=== PATIENT | female | born 1955 | race Caucasian/White ===

== ENCOUNTER 2022-03-11 06:53 | Day surgery (SDC) | payer MEDICARE, BC ==
[2022-03-04 10:30] LABS: CLARITY,URINE CLEAR (Clear); COLOR,URINE YELLOW (Yellow); GLUCOSE, URINE NEGATIVE (Neg); KETONES,URINE NEGATIVE (Neg); LEUKOCYTE ESTERASE ,URINE NEGATIVE (Neg); NITRITES, URINE NEGATIVE (Neg); OCCULT BLOOD,URINE NEGATIVE (Neg); PH,URINE 7.5 (4.8-8.0); PROTEIN,URINE NEGATIVE (Neg); UROBILINOGEN,URINE 0.2 E.U/dL (0.2-1.0)
[2022-03-04 10:32] LABS: BASOPHILS % (AUTO) 0.7 % (0-1); EOSINOPHILS # (AUTO) 0.1 X10'3 (0-0.9); EOSINOPHILS % (AUTO) 1.5 % (0-6); LYMPHOCYTES # (AUTO) 1.2 X10'3 (1.1-4.8); LYMPHOCYTES % (AUTO) 20.4 % (21-51); MEAN CORPUSCULAR HEMOGLOBIN 29.9 PG (27.0-31.0); MEAN CORPUSCULAR HGB CONC 32.2 g/dL (33.0-36.5); MEAN CORPUSCULAR VOLUME 92.9 FL (78-98); MEAN PLATELET VOLUME 8.8 FL (7.4-10.4); MONOCYTES # (AUTO) 0.7 X10'3 (0-0.9); MONOCYTES % (AUTO) 11.7 % (2-12); NEUTROPHILS % (AUTO) 65.7 % (42-75); PRE OP HEMATOCRIT 42.1 % (35.0-45.0); PRE OP HEMOGLOBIN 13.5 g/dL (12.0-16.0); PRE OP PLATELET COUNT 225 X10'3 (140-440); RED BLOOD COUNT 4.53 X10'6 (4.20-5.60); RED CELL DISTRIBUTION WIDTH 13.8 % (11.5-14.5)
[2022-03-04 10:37] LABS: UA COLLECTION TYPE CLN CATCH MIDSTREAM
[2022-03-04 10:42] LABS: ALBUMIN 3.8 G/DL (3.4-5.0); ALBUMIN/GLOBULIN RATIO 1.2 (1.1-1.5); ALKALINE PHOSPHATASE 47 IU/L (46-116); BLOOD UREA NITROGEN 11 MG/DL (7-18); BUN/CREATININE RATIO 15.3 (6.6-38.0); CALCIUM 9.1 MG/DL (8.5-10.1); CHLORIDE 102 MMOL/L (99-107); CREATININE 0.72 MG/DL (0.40-0.90); PRE OP ALT 23 U/L (30-65); PRE OP ANION GAP 6 (8-16); PRE OP AST 31 U/L (10-37); PRE OP BILIRUB, TOTAL 0.4 MG/DL (0.0-1.0); PRE OP GLUCOSE 106 MG/DL (70-104); PRE OP SODIUM 138 MMOL/L (135-145); TOTAL CARBON DIOXIDE 30.4 MMOL/L (24-32); eGFR 81 ML/MIN
[2022-03-11] VITALS (14 sets, daily range): BP systolic 121–165; BP diastolic 77–109
[~2022-03-11] VITALS: Ht 167.6 cm; Wt 52.8 kg
[~2022-03-11 06:53] MED LIST: CHOL100046 PO; ESTR1TAB28 PO; PROG200C11 PO; ceFAZolin inj. 2,000 MG in dextrose 5%-water 100 ML IV ONE; famotidine 20mg tablet PO ONE; ringers solution, lacted 1,000 ML IV SCH
[2022-03-11] MEDS ORDERED: BUPIVACAINE liposomal/PF 13.3 MG/ML vial IM ONE (08:03)
[2022-03-11] MEDS ORDERED: BUPIVAcaine 0.5% inj/PF 30 ML ONE (08:03)
[2022-03-11] MEDS ORDERED: midazolam 1 mg/ML 2ml injection ONE (08:38)
[2022-03-11] MEDS ORDERED: fentaNYL/PF 50MCG/1 ML 2ML syringe ONE ×2 (08:38→09:49)
[2022-03-11] MEDS ORDERED: ondansetron/PF 4mg/2ml inj IV PRN (08:55)
[2022-03-11] MEDS ORDERED: ringers solution, lacted 1,000 ML IV SCH (08:55)
[2022-03-11] MEDS ORDERED: meperidine/PF 25mg/ml syringe IV PRN ×2 (08:55)
[2022-03-11] MEDS ORDERED: proCHLORperazine 10 MG/2 ml inj IV PRN (08:55)
[2022-03-11] MEDS ORDERED: morphine 2 MG/ML inj. syringe IV PRN (08:55)
[2022-03-11] MEDS ORDERED: sevoflurane 250ml liquid IH ONE (09:00)
[2022-03-11] MEDS ORDERED: LIDOcaine 2% (20mg/ml) 5ml vial ONE (09:49)
[2022-03-11] MEDS ORDERED: ondansetron/PF 4mg/2ml inj ONE (09:49)
[2022-03-11] MEDS ORDERED: dexamethasone sod phosphate 4mg/ml inj. ONE (09:49)
[2022-03-11] MEDS ORDERED: rocuronium 10mg/ml inj IV ONE (09:49)
[2022-03-11] MEDS ORDERED: propofol inj 20 ML IV ONE (09:49)
[2022-03-11] MEDS ORDERED: acetaminophen 1,000mg/100ml IV 100 ML IV ONE (09:49)
--- NOTE | 2022-03-11 10:34 | NUR ---
Received from OR via , accompanied by Anesthesiologist CATRACHO and OR NURSE report given by Anesthesiolgist. PT IS DROWSY YET RESPONDS TO VERBAL STIMULI. PT DENIES PAIN OR DISCOMFORT. [id number] AWARE. 3 LAP SITES ALL WNL. Addendum: 03/11/22 at 1057 by Jesica Mosqueda RN Amended: Links added.
[2022-03-11] MEDS: meperidine/PF 25mg/ml syringe IV PRN ×2 (10:50→11:33)
[2022-03-11] MEDS ORDERED: neostigmine methylsulfate 1 MG/ML 10ml vial ONE (11:07)
[2022-03-11] MEDS ORDERED: glycopyrrolate 0.2mg/ml inj ONE (11:07)
[2022-03-11] MEDS: morphine 4 MG/ML inj SYRINge IV PRN ×2 (11:11→12:03)
[2022-03-11] MEDS ORDERED: oxyCODONE/APAP 5-325mg tablet PO PRN (11:55)
--- NOTE | 2022-03-11 12:14 | NUR ---
ALL DISCHARGE CRITERIA HAS BEEN MET. VSS, PAIN AT A TOLERABLE LEVEL, VOIDING AND ABLE TO SAFELY AMBULATE AND TRANSFER SELF. IV TAKEN OUT WITHOUT ANY COMPLICATIONS. ALL DISCHARGE INSTRUCTIONS COVERED WITH PATIENT AND ALL QUESTIONS ANSWERED. PATIENT TAKEN OUT VIA WHEELCHAIR TO PERSONAL VEHICLE WHERE FAMILY/FRIEND DROVE PATIENT HOME. Addendum: 03/11/22 at 1222 by Jesica Mosqueda RN Amended: Links added.
== END 2022-03-11 12:14 | disposition home or self-care (01) ==
LOC: PAS 06:53
PROVIDERS: ATTEND Surgery
DX: K43.9 Ventral hernia without obstruction or gangrene (principal); Z79.899 Other long term (current) drug therapy; Z98.890 Other specified postprocedural states; G89.18 Other acute postprocedural pain
CPT/HCPCS: 36415; 49652; 64488; 80053; 81003; 82948; 85025; 93005; C1781; C9290; J0131; J0690; J1100; J2175; J2250; J2270; J2405; J2704; J2710; J3010; J3490; J7030; J7060; J7120; S0020; Z7506; Z7508; Z7512; A4618; A7000

== ENCOUNTER 2024-11-06 15:31 | Emergency (ER) | payer MEDICARE, BC ==
[~2024-11-06] VITALS: Ht 167.6 cm; Wt 50.3 kg
[~2024-11-06 15:31] MED LIST changes: -ceFAZolin inj. 2,000 MG in dextrose 5%-water 100 ML IV ONE; -famotidine 20mg tablet PO ONE; -ringers solution, lacted 1,000 ML IV SCH
[2024-11-06 15:46] VITALS: BP 125/72; PULSE 77; RESP 13; TEMP 98.6; O2SAT 99
--- NOTE | 2024-11-06 16:26 | Physician Documentation ---
History of Present Illness ~ Chief Complaint: Bite-animal Stated Complaint: DOG BITE Time Seen by MD: 15:59 HPI 69-year-old female presents to the ED with a complaint of a dog bite on her right middle finger states the dog was vaccinated and injured her medial and posterior aspect of her 3rd finger Tetanus within 5 years?: Yes Medication Reconciliation Allergies: Coded Allergies: No Known Allergies (Unverified , 11/06/24) Scheduled Cholecalciferol (Vitamin D3) (Vitamin D3), 1 CAP PO QAM, (Reported) Estradiol (Estradiol), 0.5 TAB PO DAILY, (Reported) Progesterone,Micronized (Progesterone), 1 CAP PO HS, (Reported) Review of Systems All Other Systems at this time: Reviewed and Negative ROS As stated above in the HPI, otherwise all systems are reviewed and negative. Physical Exam Vital Signs: Temperature: 98.6, Source: Temporal, Heart Rate: 77, Respiratory Rate: 13, BP: 125/72, Pulse Oximetry: 99, Weight: 50.300 Oxygen Flow Rate: 0 Physical Exam General: Alert, no apparent distress. HEENT: PERRL, EOMI, no injection, moist mucous membranes. Extremities: Finger posterior and medial aspect small lacerations 1cm. Neurologic: Oriented x4. Psychiatric: Normal mood and affect. Skin: Normal color, warm and dry. No edema, no ecchymosis. Progress Results/Orders Results/Orders Orders - LYNDA VINES NP Laceration/I&D Tray Set Up (11/06/24 ) Completed Orders - LYNDA VINES [employer] Lidocaine/Epi/Tetracaine Top (Lidocaine/ (11/06/24 16:25) Medications Received in ER Medications (Trade) Dose Ordered Sig/Marquez Route PRN Reason Start Time Stop Time Status Last Admin Dose Admin (LIDOcaine/ epiNEPH/ tetracaine top marisabel 3ml SYR) 5 ml ONCE ONCE TOP 11/06/24 16:25 11/06/24 16:26 DC 11/06/24 16:45 5 ML Vital Signs 11/06/24 15:46 Temp 98.6 Pulse 77 Resp 13 B/P (MAP) 125/72 Pulse Ox 99 O2 Flow Rate 0 Medical Decision Making Findings Patient refused to wait in her room and said that we were taking too long. Left without receiving stitches she did receive the topical lidocaine however. Sent antibiotics to her pharmacy and although the patient did elope Differential Dx:Considerations: Include: Abrasion, Allergic reaction, Anaphylaxis, Cellulitis, Contusion, Fracture, Hematoma, Insect envenomation, Laceration, Neurovascular injury, Punture wound, Retained foreign body, Urticaria, Other Departure Disposition: 07 LEFT AWOL/ELOPED Impression: Primary Impression: Dog bite Discharge Instructions: Animal Bite, Adult Referrals: NO PRIMARY CARE PROVIDER (PCP) Prescriptions Amox Tr/Potassium Clavulanate (Augmentin 875-125 Tablet) 1 Each Tablet 1 TAB PO Q12H for 7 Days, #14 TAB Prov: LYNDA VINES [employer] 11/06/24 Education Educated: Patient Educated regarding: diagnosis Signature Scribe Signature: f Attestation: Scribed for Lynda Vines Exam Proctor by Lynda Vines - ALEJANDRA . 11/06/24 16:26 LYNDA VINES NP Nov 06, 2024 16:26
[2024-11-06] MEDS: LIDOcaine/epinephrine/tetracaine TOPICAL sol 3 ML syringe TOP ONE (16:45)
[2024-11-06] MEDS ORDERED: AMOX-117 PO (17:10)
== END 2024-11-06 17:11 | disposition left against medical advice (07) ==
LOC: ER 15:31
DX: S61.252A Open bite of right middle finger without damage to nail, initial encounter (principal); W54.0XXA Bitten by dog, initial encounter; Y93.89 Activity, other specified; Y92.89 Other specified places as the place of occurrence of the external cause; Y99.8 Other external cause status
CPT/HCPCS: 99283; J3490; Z7610